=== PATIENT | female | born 2000 | race Hispanic/Latino ===

== ENCOUNTER 2022-06-12 18:29 | Observation (INO) | payer MEDICAID ==
[~2022-06-12] VITALS: Ht 157.5 cm; Wt 61.2 kg
[2022-06-12] MEDS ORDERED: LACTATED RINGERS 1000ML IV PRN (19:00)
[2022-06-12 19:16] LABS: APPEARANCE,URINE CLEAR (CLEAR); BILIRUBIN,URINE NEGATIVE (NEGATIVE); COLOR,URINE LIGHT-YELLOW (YELLOW); GLUCOSE, URINE (UA) NEGATIVE (NEGATIVE); KETONES,URINE NEGATIVE (NEGATIVE); LEUKOCYTE ESTERASE ,URINE NEGATIVE Leu/uL (NEGATIVE); NITRATE,URINE NEGATIVE (NEGATIVE); OCCULT BLOOD,URINE NEGATIVE (NEGATIVE); PH,URINE 6.5 (5.0-8.0); PROTEIN,URINE NEGATIVE (NEGATIVE); UROBILINOGEN,URINE 0.2 mg/dL (0.2-1.0)
[2022-06-12 19:20] LABS: BACTERIA,URINE RARE /HPF (None Seen); RBC,URINE 0-1 /HPF (0-1); SQUAMOUS EPITHELIAL CELL,UR RARE /HPF (0-2)
[2022-06-12 19:23] LABS: AMPHET/METH SCREEN,URINE NEGATIVE (NEGATIVE); BARBITURATE SCREEN, URINE NEGATIVE (NEGATIVE); BENZODIAZEPINES SCREEN,URINE NEGATIVE (NEGATIVE); CANNABINOID SCREEN,URINE NEGATIVE (NEGATIVE); COCAINE SCREEN,URINE NEGATIVE (NEGATIVE); OPIATE SCREEN,URINE NEGATIVE (NEGATIVE); PHENCYCLIDINE SCREEN,URINE NEGATIVE (NEGATIVE)
[2022-06-12 20:27] VITALS: BP 118/78
[2022-06-12] MEDS ORDERED: PREN1TAB80 PO (20:29)
[2022-06-12] MEDS ORDERED: TERBUTALINE SULFATE VIAL 1MG/ML SQ SCH (23:00)
[2022-06-12] MEDS ORDERED: LACTATED RINGERS 1000ML 1,000 ML IV SCH (23:30)
== END 2022-06-13 01:25 | disposition home or self-care (01) ==
LOC: EDH 18:29 → LDH 18:51
PROVIDERS: ADMIT Internal Medicine; ATTEND Internal Medicine
DX: O26.893 Other specified pregnancy related conditions, third trimester (principal); R19.7 Diarrhea, unspecified; O21.2 Late vomiting of pregnancy; Z3A.31 31 weeks gestation of pregnancy; Z79.899 Other long term (current) drug therapy
CPT/HCPCS: 96372; 96360; 96361; 80305; 81001; G0379; G0378 ×6; J7120 ×2; J3105